=== PATIENT | male | born 1975 | race African-American/Black ===

== ENCOUNTER 2024-01-25 21:48 | Inpatient (IN) | payer OTHER ==
[~2024-01-25] VITALS: Ht 180.3 cm; Wt 102.6 kg
[2024-01-25 23:15] LABS: BASOPHILS % (AUTO) 0.8 % (0.0-2.0); HEMATOCRIT 46.6 % (41-53); HEMOGLOBIN 15.3 g/dL (13.5-17.5); LYMPHOCYTES # (AUTO) 2.4 K/uL (1.0-4.8); LYMPHOCYTES % (AUTO) 36.4 % (22.0-44.0); MEAN CORPUSCULAR HEMOGLOBIN 30.1 pg (26.0-34.0); MEAN CORPUSCULAR HGB CONC 32.7 G/dL (31.0-37.0); MEAN CORPUSCULAR VOLUME 92 fL (80-100); MONOCYTES # (AUTO) 0.5 K/uL (0.1-1.0); MONOCYTES % (AUTO) 7.5 % (2.0-9.0); NEUTROPHILS # (AUTO) 3.5 K/uL (1.8-7.7); NEUTROPHILS % (AUTO) 53.3 % (40.0-70.0); PLATELET COUNT (AUTO) 238 K/uL (150-450); RED BLOOD CELL COUNT(AUTO) 5.07 MIL/uL (4.50-5.90); RED CELL DISTRIBUTION WIDTH 14.6 % (11.5-14.5); WHITE BLOOD COUNT (AUTO) 6.5 K/uL (4.5-11.0)
[2024-01-25 23:26] LABS: ANION GAP 7 mmol/L (8-16); CALCIUM, TOTAL 9.9 mg/dL (8.8-10.5); CARBON DIOXIDE 32 mmol/L (22-29); CHLORIDE 101 mmol/L (98-107); GLOMERULAR FILTR. RATE CALC > 60 mL/min (>60); GLUCOSE,RANDOM 106 mg/dL (70-110); SODIUM SERUM 140 mmol/L (136-145); UREA NITROGEN, BLOOD 15 mg/dL (7-18)
[2024-01-25 23:28] LABS: POTASSIUM 2.3 mmol/L (3.5-5.1)
[2024-01-25] MEDS: POTASSIUM CHLORIDE 20 MEQ ER TABLET PO ONE (23:51)
[2024-01-26 00:29] LABS: PH,URINE DRUG SCREEN 6.5 (5.0-8.0)
[2024-01-26 01:11] LABS: ALCOHOL, URINE DRUG SCREEN NEGATIVE (NEGATIVE); AMPHET/METH SCREEN,URINE NEGATIVE (NEGATIVE); BARBITURATE SCREEN, URINE NEGATIVE (NEGATIVE); BENZODIAZEPINES SCREEN,URINE NEGATIVE (NEGATIVE); CANNABINOID SCREEN,URINE POSITIVE (NEGATIVE); COCAINE SCREEN,URINE NEGATIVE (NEGATIVE); METHADONE SCREEN, URINE NEGATIVE (NEGATIVE); OPIATE SCREEN,URINE NEGATIVE (NEGATIVE); PHENCYCLIDINE SCREEN,URINE NEGATIVE (NEGATIVE)
[2024-01-26] MEDS ORDERED: QUEtiapine FUMARATE 100 MG TABLET PO PRN (02:30)
[2024-01-26] MEDS: POTASSIUM CHL 10 MEQ/WATER 50 ML IV SCH (04:17)
[2024-01-26] MEDS ORDERED: MAGNESIUM OXIDE 400 MG TABLET PO PRN (05:15)
[2024-01-26] MEDS ORDERED: MAGNESIUM SULFATE 4 GM/WATER 100 ML IV PRN (05:15)
[2024-01-26] MEDS ORDERED: MAGNESIUM SULFATE 2 GM/WATER 50 ML IV PRN (05:15)
[2024-01-26 05:41] LABS: ALBUMIN 4.3 g/dL (3.4-5.0)
[2024-01-26 09:33] VITALS: BP 111/76; PULSE 81; RESP 18; TEMP 99
[2024-01-26] MEDS: POTASSIUM CHLORIDE 20 MEQ ER TABLET PO PRN (09:45)
[2024-01-26] MEDS: HEPARIN SODIUM,PORCINE 5,000 UNITS/ML VIAL SQ SCH (09:45)
[2024-01-26] MEDS: DOCUSATE SODIUM 100 MG CAPSULE PO SCH (09:45)
[2024-01-26] MEDS: ACETAMINOPHEN 325 MG TABLET PO PRN (09:51)
[2024-01-26 09:58] VITALS: BP 111/76; PULSE 81; RESP 18; TEMP 99
[2024-01-26 11:00] VITALS: BP 106/80; PULSE 72; RESP 18; TEMP 98.8
[2024-01-26] MEDS ORDERED: HALOPERIDOL LACTATE 5 MG/ML VIAL IM PRN (11:30)
[2024-01-26] MEDS: ASPIRIN 81 MG CHEWABLE TABLET PO SCH (12:28)
[2024-01-26] MEDS: ATORVASTATIN CALCIUM 40 MG TABLET PO SCH (12:28)
[2024-01-26 15:53] VITALS: BP 128/74; PULSE 82; RESP 18; TEMP 98.6
[2024-01-26] MEDS ORDERED: SODIUM CHLORIDE 0.9% 250 ML IV ONE (17:02)
[2024-01-26] MEDS: POTASSIUM CHL 10 MEQ/WATER 50 ML IV PRN (17:13)
[2024-01-26 20:09] VITALS: BP 105/76; PULSE 88; RESP 19; TEMP 98.3
[2024-01-27 00:57] VITALS: BP 117/75; PULSE 88; RESP 20; TEMP 98.1
[2024-01-27 05:12] VITALS: BP 122/72; PULSE 82; RESP 20; TEMP 98
[2024-01-27 06:16] LABS: BASOPHILS % (AUTO) 0.8 % (0.0-2.0); EOSINOPHILS % (AUTO) 2.1 % (1.0-6.0); HEMOGLOBIN 12.6 g/dL (13.5-17.5); LYMPHOCYTES % (AUTO) 34.8 % (22.0-44.0); MEAN CORPUSCULAR HEMOGLOBIN 30.1 pg (26.0-34.0); MEAN CORPUSCULAR VOLUME 91 fL (80-100); MONOCYTES # (AUTO) 0.5 K/uL (0.1-1.0); MONOCYTES % (AUTO) 8.9 % (2.0-9.0); NEUTROPHILS # (AUTO) 3.1 K/uL (1.8-7.7); NEUTROPHILS % (AUTO) 53.4 % (40.0-70.0); PLATELET COUNT (AUTO) 191 K/uL (150-450); RED BLOOD CELL COUNT(AUTO) 4.17 MIL/uL (4.50-5.90); RED CELL DISTRIBUTION WIDTH 14.7 % (11.5-14.5); WHITE BLOOD COUNT (AUTO) 5.8 K/uL (4.5-11.0)
[2024-01-27 06:28] LABS: ANION GAP 3 mmol/L (8-16); CALCIUM, TOTAL 8.5 mg/dL (8.8-10.5); CARBON DIOXIDE 31 mmol/L (22-29); CHLORIDE 107 mmol/L (98-107); CREATININE 0.95 mg/dL (0.60-1.30); GLOMERULAR FILTR. RATE CALC > 60 mL/min (>60); GLUCOSE,RANDOM 110 mg/dL (70-110); POTASSIUM 3.3 mmol/L (3.5-5.1); SODIUM SERUM 141 mmol/L (136-145); UREA NITROGEN, BLOOD 10 mg/dL (7-18)
[2024-01-27 07:52] VITALS: BP 122/80; PULSE 102; RESP 18; TEMP 98
[2024-01-27 11:35] VITALS: BP 123/73; PULSE 82; RESP 18; TEMP 99
[2024-01-27 16:50] LABS: COVID AG,FIA SOURCE NASAL SWAB
[2024-01-27 17:06] LABS: SARS-COV2 (COVID) ANTIGEN,FIA Negative (Negative)
[2024-01-27] MEDS: POTASSIUM CHLORIDE 40 MEQ in SODIUM CHLORIDE 0.9% 1,000 ML IV ONE (18:01)
[2024-01-27 19:17] VITALS: BP 126/63; PULSE 94; RESP 18; TEMP 97.6
[2024-01-27] MEDS: ZOLPIDEM TARTRATE 10 MG TABLET PO PRN (20:08)
[2024-01-27 23:38] VITALS: BP 118/81; PULSE 103; RESP 16; TEMP 98.2
[2024-01-28 05:39] VITALS: BP 131/72; PULSE 91; RESP 18; TEMP 98.4
[2024-01-28 06:21] LABS: BASOPHILS % (AUTO) 1.2 % (0.0-2.0); EOSINOPHILS % (AUTO) 3.7 % (1.0-6.0); HEMATOCRIT 37.8 % (41-53); HEMOGLOBIN 12.5 g/dL (13.5-17.5); LYMPHOCYTES # (AUTO) 1.9 K/uL (1.0-4.8); LYMPHOCYTES % (AUTO) 37.2 % (22.0-44.0); MEAN CORPUSCULAR HEMOGLOBIN 30.4 pg (26.0-34.0); MEAN CORPUSCULAR HGB CONC 32.9 G/dL (31.0-37.0); MEAN CORPUSCULAR VOLUME 92 fL (80-100); MONOCYTES # (AUTO) 0.5 K/uL (0.1-1.0); MONOCYTES % (AUTO) 9.5 % (2.0-9.0); NEUTROPHILS # (AUTO) 2.4 K/uL (1.8-7.7); NEUTROPHILS % (AUTO) 48.4 % (40.0-70.0); PLATELET COUNT (AUTO) 206 K/uL (150-450); RED BLOOD CELL COUNT(AUTO) 4.09 MIL/uL (4.50-5.90); RED CELL DISTRIBUTION WIDTH 14.7 % (11.5-14.5)
[2024-01-28 06:28] LABS: ANION GAP 4 mmol/L (8-16); CALCIUM, TOTAL 8.1 mg/dL (8.8-10.5); CARBON DIOXIDE 29 mmol/L (22-29); CHLORIDE 108 mmol/L (98-107); CREATININE 0.86 mg/dL (0.60-1.30); GLOMERULAR FILTR. RATE CALC > 60 mL/min (>60); GLUCOSE,RANDOM 100 mg/dL (70-110); SODIUM SERUM 141 mmol/L (136-145); UREA NITROGEN, BLOOD 6 mg/dL (7-18)
[2024-01-28 07:09] VITALS: BP 130/70; PULSE 88; RESP 18; TEMP 98.5
[2024-01-28 10:27] VITALS: BP 130/65; PULSE 66; RESP 18; TEMP 98.5
[2024-01-28] MEDS ORDERED: GABA-1201 PO (11:39)
[2024-01-28] MEDS ORDERED: HYDR25TA2 PO (11:39)
[2024-01-28] MEDS ORDERED: EZET10TA82 PO (11:39)
[2024-01-28] MEDS ORDERED: BUSP10TA23 PO (11:39)
[2024-01-28] MEDS ORDERED: METO50 PO (11:39)
[2024-01-28] MEDS ORDERED: MIRT-149 PO (11:39)
[2024-01-28] MEDS ORDERED: FAMO20 PO (11:39)
[2024-01-28] MEDS ORDERED: BACL20TA PO (11:39)
[2024-01-28] MEDS ORDERED: RIVA20TA PO (11:39)
[2024-01-28] MEDS ORDERED: ATOR40TA71 PO (11:39)
[2024-01-28] MEDS ORDERED: LISI40TA9 PO (11:39)
[2024-01-28] MEDS: LORazepam 2 MG TABLET PO PRN (12:04)
[2024-01-28 15:23] VITALS: BP 110/75; PULSE 76; RESP 18; TEMP 98.5
[2024-01-28 20:00] VITALS: BP 130/86; PULSE 96; RESP 16; TEMP 99.3
[2024-01-29 04:35] VITALS: BP 140/91; PULSE 89; RESP 16; TEMP 98.5
[2024-01-29 05:46] LABS: APPEARANCE,URINE CLEAR (CLEAR); BILIRUBIN,URINE NEGATIVE (NEGATIVE); COLOR,URINE YELLOW (YELLOW); GLUCOSE, URINE (UA) NEGATIVE (NEGATIVE); KETONES,URINE NEGATIVE (NEGATIVE); LEUKOCYTE ESTERASE ,URINE NEGATIVE (NEGATIVE); NITRATE,URINE NEGATIVE (NEGATIVE); OCCULT BLOOD,URINE NEGATIVE (NEGATIVE); PROTEIN,URINE TRACE mg/dL (NEGATIVE); SPECIFIC GRAVITIY, URINE 1.032 (1.003-1.030); UROBILINOGEN,URINE <=1.0 mg/dL (<=1.0)
[2024-01-29 05:53] LABS: ALCOHOL, URINE DRUG SCREEN NEGATIVE (NEGATIVE); AMPHET/METH SCREEN,URINE NEGATIVE (NEGATIVE); BARBITURATE SCREEN, URINE NEGATIVE (NEGATIVE); BENZODIAZEPINES SCREEN,URINE NEGATIVE (NEGATIVE); CANNABINOID SCREEN,URINE POSITIVE (NEGATIVE); COCAINE SCREEN,URINE NEGATIVE (NEGATIVE); METHADONE SCREEN, URINE NEGATIVE (NEGATIVE); OPIATE SCREEN,URINE NEGATIVE (NEGATIVE); PHENCYCLIDINE SCREEN,URINE NEGATIVE (NEGATIVE)
[2024-01-29 06:32] LABS: EOSINOPHILS % (AUTO) 3.7 % (1.0-6.0); HEMATOCRIT 35.9 % (41-53); HEMOGLOBIN 11.9 g/dL (13.5-17.5); LYMPHOCYTES # (AUTO) 2.2 K/uL (1.0-4.8); LYMPHOCYTES % (AUTO) 36.5 % (22.0-44.0); MEAN CORPUSCULAR HEMOGLOBIN 30.4 pg (26.0-34.0); MEAN CORPUSCULAR VOLUME 92 fL (80-100); MONOCYTES # (AUTO) 0.5 K/uL (0.1-1.0); MONOCYTES % (AUTO) 8.3 % (2.0-9.0); NEUTROPHILS # (AUTO) 3.1 K/uL (1.8-7.7); NEUTROPHILS % (AUTO) 50.5 % (40.0-70.0); PLATELET COUNT (AUTO) 198 K/uL (150-450); RED CELL DISTRIBUTION WIDTH 14.7 % (11.5-14.5); WHITE BLOOD COUNT (AUTO) 6.1 K/uL (4.5-11.0)
[2024-01-29 06:53] LABS: ANION GAP 4 mmol/L (8-16); CALCIUM, TOTAL 8.2 mg/dL (8.8-10.5); CARBON DIOXIDE 27 mmol/L (22-29); CHLORIDE 106 mmol/L (98-107); CREATININE 0.84 mg/dL (0.60-1.30); GLOMERULAR FILTR. RATE CALC > 60 mL/min (>60); GLUCOSE,RANDOM 96 mg/dL (70-110); POTASSIUM 3.5 mmol/L (3.5-5.1); SODIUM SERUM 137 mmol/L (136-145); UREA NITROGEN, BLOOD 5 mg/dL (7-18)
[2024-01-29 07:28] VITALS: BP 133/88; PULSE 100; RESP 18; TEMP 98.2
[2024-01-29 15:51] VITALS: BP 138/83; PULSE 94; RESP 18; TEMP 98.7
[2024-01-29 19:23] VITALS: BP 112/82; PULSE 119; RESP 18; TEMP 98.3
[2024-01-30 05:02] VITALS: BP 130/88; PULSE 89; RESP 18; TEMP 98.4
[2024-01-30 07:39] LABS: BASOPHILS % (AUTO) 0.9 % (0.0-2.0); EOSINOPHILS % (AUTO) 2.6 % (1.0-6.0); HEMATOCRIT 36.6 % (41-53); HEMOGLOBIN 11.9 g/dL (13.5-17.5); LYMPHOCYTES # (AUTO) 2.5 K/uL (1.0-4.8); LYMPHOCYTES % (AUTO) 34.7 % (22.0-44.0); MEAN CORPUSCULAR HEMOGLOBIN 29.8 pg (26.0-34.0); MEAN CORPUSCULAR HGB CONC 32.6 G/dL (31.0-37.0); MEAN CORPUSCULAR VOLUME 92 fL (80-100); MONOCYTES # (AUTO) 0.5 K/uL (0.1-1.0); MONOCYTES % (AUTO) 7.4 % (2.0-9.0); NEUTROPHILS # (AUTO) 3.9 K/uL (1.8-7.7); NEUTROPHILS % (AUTO) 54.4 % (40.0-70.0); PLATELET COUNT (AUTO) 220 K/uL (150-450); RED CELL DISTRIBUTION WIDTH 14.8 % (11.5-14.5); WHITE BLOOD COUNT (AUTO) 7.2 K/uL (4.5-11.0)
[2024-01-30 07:53] LABS: ANION GAP 8 mmol/L (8-16); CALCIUM, TOTAL 8.3 mg/dL (8.8-10.5); CARBON DIOXIDE 26 mmol/L (22-29); CHLORIDE 106 mmol/L (98-107); CREATININE 0.85 mg/dL (0.60-1.30); GLOMERULAR FILTR. RATE CALC > 60 mL/min (>60); GLUCOSE,RANDOM 93 mg/dL (70-110); POTASSIUM 3.6 mmol/L (3.5-5.1); SODIUM SERUM 140 mmol/L (136-145); UREA NITROGEN, BLOOD 2 mg/dL (7-18)
[2024-01-30 08:09] VITALS: BP 145/97; PULSE 99; RESP 18; TEMP 98.7
[2024-01-30 15:27] VITALS: BP 139/98; PULSE 94; RESP 18; TEMP 98.1
[2024-01-30 19:15] VITALS: BP 122/87; PULSE 104; RESP 18; TEMP 97.9
[2024-01-31 04:10] VITALS: BP 137/73; PULSE 103; RESP 20; TEMP 98.2
[2024-01-31 08:09] VITALS: BP 151/94; PULSE 97; RESP 20; TEMP 98.4
[2024-01-31 12:25] VITALS: BP 139/98; PULSE 112; RESP 20; TEMP 98
[2024-01-31 16:01] VITALS: BP 142/81; PULSE 124; RESP 20; TEMP 98
== END 2024-01-31 17:45 | disposition left against medical advice (07) | DRG 425 ==
LOC: EMS 21:48 → EDH 01-26 05:23 → 5S 01-26 09:15 → 6S 01-28 14:27
PROVIDERS: ADMIT Internal Medicine; ATTEND Internal Medicine
DX: E87.6 Hypokalemia (principal); E87.3 Alkalosis; F20.9 Schizophrenia, unspecified; Z53.29 Procedure and treatment not carried out because of patient's decision for other reasons; F31.9 Bipolar disorder, unspecified; R41.0 Disorientation, unspecified; Z20.822 Contact with and (suspected) exposure to COVID-19; F17.210 Nicotine dependence, cigarettes, uncomplicated; I25.2 Old myocardial infarction; Z99.3 Dependence on wheelchair; I69.354 Hemiplegia and hemiparesis following cerebral infarction affecting left non-dominant side; Z91.148 Patient's other noncompliance with medication regimen for other reason
CPT/HCPCS: 70450; 80048; 80307; 81003; 82040; 83735; 84132; 85025; 93005; 95816; 97116; 97163; 97530; 99285; J1630; J1644; J3480; J7030; J7050